=== PATIENT | male | born 1950 | race Caucasian/White ===

== ENCOUNTER → 2018-06-19 | Outpatient (CLI) | payer MEDICARE, BC ==
--- NOTE | 2018-06-19 12:38 | XR ---
EXAMINATION TYPE: XR chest 2V DATE OF EXAM: 06/19/2018 COMPARISON: NONE HISTORY: Shortness of breath TECHNIQUE: Frontal and lateral views of the chest are obtained. FINDINGS: Scattered senescent parenchymal changes noted. No evidence for infiltrate. No evidence for atelectasis. Heart size is stable. Mediastinal structures are stable and grossly unremarkable. No evidence for hilar prominence. Degenerative changes dorsal spine. IMPRESSION: 1. No evidence for acute pulmonary disease.
== END | disposition home or self-care (01) ==
LOC: RADXRMAIN 12:15
PROVIDERS: ATTEND Family Medicine
DX: Z00.00 Encounter for general adult medical examination without abnormal findings (principal)
CPT/HCPCS: 71046

== ENCOUNTER → 2018-11-25 | Outpatient (CLI) | payer MEDICARE, BC ==
[2018-11-25 16:50] LABS: Blood Urea Nitrogen 16 mg/dL (9-20)
--- NOTE | 2018-11-25 22:23 | CT ---
EXAMINATION TYPE: CT brain wo/w con DATE OF EXAM: 11/25/2018 COMPARISON: None. HISTORY: Dizziness and visual disturbance for [address] DLP: 2363 mGycm Automated exposure control for dose reduction was used. CONTRAST: CT scan of the head is performed without and with IV Contrast, patient injected with 100 mL of Isovue 300. FINDINGS: Noncontrast images show no acute intracranial hemorrhage or midline shift. Mild ventricular and sulca l prominence is seen. Postcontrast images showed no suspicious enhancing intraparenchymal mass. The globes are intact bilaterally patchy opacification right ethmoid sinuses is present there is mild to moderate mucosal thickening inferior right maxillary sinus. Suprasellar cistern is maintained. No dustin picious opacification mastoid air cells is present. IMPRESSION: Mild generalized atrophy. Chronic paranasal sinus disease as detailed above. No significa nt findings seen to account for patient's symptoms of dizziness and visual disturbance.
--- NOTE | 2018-11-26 07:17 | US ---
EXAMINATION TYPE: US carotid duplex BILAT DATE OF EXAM: 11/25/2018 COMPARISON: NONE CLINICAL HISTORY: R42 Vertigo,H53.9 Visual Disturbance. Blurred vision, dizziness EXAM MEASUREMENTS: RIGHT: Peak Systolic Velocity (PSV) cm/sec ----- Right CCA: 77.8 ----- Right ICA: 66.0 ----- Right ECA: 77.5 ICA/CCA ratio: 0.8 RIGHT: End Diastole cm/sec ----- Right CCA: 28.2 ----- Right ICA: 27.0 ----- Right ECA: 21.4 LEFT: Peak Systolic Velocity (PSV) cm/sec ----- Left CCA: 75.4 ----- Left ICA: 78.7 ----- Left ECA: 44.2 ICA/CCA ratio: 1.0 LEFT: End Diastole cm/sec ----- Left CCA: 29.7 ----- Left ICA: 40.0 ----- Left ECA: 11.2 VERTEBRALS (direction of flow): Right Vertebral: Antegrade Left Vertebral: Antegrade Rhythm: Normal No elevated velocities, no significant stenosis. IMPRESSION: 1. No suspicious flow-limiting stenosis Criteria for Assigning % of Stenosis / Diameter reduction (Estimation based on the indirect measurements of the internal carotid artery velocities (ICA PSV). 1. Normal (no stenosis)=ICA PSV < 125 cm/s: ratio < 2.0: ICA EDV<40 cm/s. 2. Less than 50% stenosis=ICA PSV < 125 cm/s: ratio < 2.0: ICA EDV<40 cm/s. 3. 50 to 69% stenosis=ICA PSV of 125 to 230 cm/s: ration 2.0 ? 4.0: ICA EDV 40-100 cm/s. 4. Greater than 70% stenosis to near occlusion= ICA PSV > 230 cm/s: ratio > 4.0: ICA EDV > 100 cm/s. 5. Near occlusion= ICA PSV velocities may be low or undetectable: variable ratio and ICA EDV. 6. Total occlusion=unable to detect flow.
== END ==
LOC: RADUSMAIN 15:27
PROVIDERS: ATTEND Family Medicine
DX: R42 Dizziness and giddiness (principal); G31.9 Degenerative disease of nervous system, unspecified
CPT/HCPCS: 82565; 84520; 93880; 70470; 36415; Q9967

== ENCOUNTER → 2018-12-10 | Outpatient (CLI) | payer MEDICARE, BC ==
--- NOTE | 2018-12-14 18:22 | ECHOF ---
Referral Reason:R42 Vertigo,H53.9 Visual Disturbance MEASUREMENTS -------- HEIGHT: 177.8 cm WEIGHT: 77.1 kg BP: RVIDd: 2.4 cm (< 3.3) IVSd: 1.0 cm (0.6 - 1.1) LVIDd: 4.4 cm (3.9 - 5.3) LVPWd: 0.9 cm (0.6 - 1.1) IVSs: 1.5 cm LVIDs: 2.1 cm LVPWs: 1.7 cm LAESV Index (A-L): 25.09 ml/m Ao Diam: 3.1 cm (2.0 - 3.7) AV Cusp: 1.8 cm (1.5 - 2.6) LA Diam: 2.4 cm (2.7 - 3.8) EPSS: 1.2 cm MV E Ismael: 0.79 m/s MV DecT: 237 ms MV A Ismael: 0.60 m/s MV E/A Ratio: 1.32 AR PHT: 671 ms RAP: 5.00 mmHg RVSP: 20.41 mmHg MV EF SLOPE: 120.79 mm/s (70 - 150) MV EXCURSION: 1.59 cm (> 18.000) FINDINGS -------- Sinus rhythm. This was a technically good study. The left ventricular size is normal. There is mild concentric left ventricular hypertrophy. Overa ll left ventricular systolic function is mildly impaired with, an EF between 45 - 50 %. The right ventricle is normal in size. Left atrium is normal size by volume. The right atrial size is normal. Interatrial and interventricular septum intact. There is mild aortic regurgitation. Mild mitral regurgitation is present. Mild tricuspid regurgitation present. There is no pulmonic regurgitation present. The aortic root size is normal. The inferior vena cava was not well visualized. There is no pericardial effusion. CONCLUSIONS -------- 1. Sinus rhythm. 2. This was a technically good study. 3. The left ventricular size is normal. 4. There is mild concentric left ventricular hypertrophy. 5. Overall left ventricular systolic function is mildly impaired with, an EF between 45 - 50 %. 6. The right ventricle is normal in size. 7. Left atrium is normal size by volume. 8. The right atrial size is normal. 9. Interatrial and interventricular septum intact. 10. There is mild aortic regurgitation. 11. Mild mitral regurgitation is present. 12. Mild tricuspid regurgitation present. 13. There is no pulmonic regurgitation present. 14. The aortic root size is normal. 15. The inferior vena cava was not well visualized. 16. There is no pericardial effusion. ESCROW SECRETARY: Ciera Truong RDCS
== END ==
LOC: RADECHMAIN 13:02
PROVIDERS: ATTEND Family Medicine
DX: R42 Dizziness and giddiness (principal); H53.9 Unspecified visual disturbance
CPT/HCPCS: 93306

== ENCOUNTER → 2019-01-21 | Outpatient (CLI) | payer MEDICARE, BC ==
--- NOTE | 2019-01-21 08:50 | MR ---
EXAMINATION TYPE: MR brain wo con DATE OF EXAM: 01/21/2019 COMPARISON: CT brain November 25, 2018. HISTORY: Memory loss, tremor, and vestibular neuronitis all per order. Dizziness per patient. TECHNIQUE: Multiplanar, multisequence imaging of the brain and brainstem is performed without IV cont rast. Fast brain protocol utilized due to patient's extreme claustrophobia. FINDINGS: Diffusion weighted images demonstrate no evidence of a recent infarct or other diffusion abnormality. There is no worrisome extra-axial fluid collection. There is mild ventricular and sulcal prominence. There are some small scattered foci T2 hyperintensity seen throughout the white matter bilaterally. L esions are nonspecific in appearance and distribution but most likely on basis of product of chronic small vessel ischemic change. Midline structures demonstrate normal morphology. The craniocervical junction appears within normal limits. Normal vascular flow voids are present. Mild mucosal thickening involving right frontal sinus is present. There is mild to moderate mucosal thickening involving ethmoid sinuses bilaterally. Mild mucosal thickening involving inferior bilateral maxillary sinuses is seen. Some dependent fluid left maxillary sinus is noted. No suspicious opacification mastoid air cells is present. Globes are intac t bilaterally. IMPRESSION: Mild diffuse age-related cerebral atrophy and chronic small vessel ischemic change. Chron ic paranasal sinus disease redemonstrated.
== END | disposition home or self-care (01) ==
LOC: RADMRIMAIN 08:14
PROVIDERS: ATTEND Psychiatry & Neurology Neurology
DX: G31.1 Senile degeneration of brain, not elsewhere classified (principal); I67.82 Cerebral ischemia; H81.20 Vestibular neuronitis, unspecified ear
CPT/HCPCS: 70551

== ENCOUNTER → 2021-01-06 | Outpatient (CLI) | payer MEDICARE, BC ==
[2021-01-06 18:21] LABS: African American GFR (CKD) >90 (>60 ml/min/1.73 sqM); Blood Urea Nitrogen 17 mg/dL (9-20); Non-African American GFR(CKD) 89 (>60 ml/min/1.73 sqM)
--- NOTE | 2021-01-06 19:50 | CT ---
EXAMINATION TYPE: CT brain wo/w con DATE OF EXAM: 01/06/2021 COMPARISON: Prior CT brain November 25, 2018. Prior MRI brain January 21, 2019. HISTORY: Syncope, dizziness, blurry vision CT DLP: 2219 mGycm Automated exposure control for dose reduction was used. CONTRAST: CT scan of the head is performed without and with IV Contrast, patient injected with 100 mL of Isovue 300. FINDINGS: Noncontrast images show no acute intracranial hemorrhage or midline shift. Mild to moderate ventricul ar and sulcal prominence. Carvajal-white matter differentiation fairly well maintained. Postcontrast imag es show no suspicious enhancing intraparenchymal masses. The globes are intact and the visualized sin uses are clear. No new opacification mastoid air cells. IMPRESSION: [id number] diffuse cerebral atrophy redemonstrated. No suspicious enhancing masses. No significant change from prior studies.
== END | disposition home or self-care (01) ==
LOC: RADCTMAIN 17:38
PROVIDERS: ATTEND Family Medicine
DX: G31.9 Degenerative disease of nervous system, unspecified (principal)
CPT/HCPCS: 82565; 84520; 70470; 36415; Q9967

== ENCOUNTER → 2021-02-26 | Outpatient (CLI) | payer MEDICARE, BC ==
--- NOTE | 2021-02-27 13:10 | MR ---
EXAMINATION TYPE: MR brain wo con DATE OF EXAM: 02/26/2021 COMPARISON: 01/21/2019 MRI, 01/06/2021 CT brain HISTORY: Diplopia CONTRAST: None TECHNIQUE: Multiplanar, multiecho imaging on a 3.0 Meeta magnet is performed through the brain. Stud y is performed within 24 hours of arrival to the hospital. The craniovertebral junction is normal. The pituitary is normal. Diffusion-weighted imaging is performed. No abnormal hyperintensity is present to suggest an acute i ntracranial infarct or acute ischemic change. There are a few scattered punctate areas of hyperintensity on T2 and Inversion Recovery weighted sequ ences which are non-specific but can be related to microvascular ischemic changes. Ventricles and sulci are prominent for the patient age. IMPRESSIONS: 1. Atrophy with minimal chronic appearing white matter ischemic type changes
== END | disposition home or self-care (01) ==
LOC: RADMRIMAIN 09:57
PROVIDERS: ATTEND Ophthalmology
DX: I67.82 Cerebral ischemia (principal); H53.2 Diplopia
CPT/HCPCS: 70551